=== PATIENT | male | born 2005 | race Caucasian/White ===

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

== ENCOUNTER 2024-12-11 22:38 | Emergency (ER) | payer OTHER, SELFPAY ==
--- NOTE | 2024-12-11 22:39 | XRR_ITS ---
PROCEDURE INFORMATION: Exam: XR Right Ankle Exam date and time: 12/11/2024 10:44 PM Age: 19 years old Clinical indication: Right; RT ankle pain/swelling post fall TECHNIQUE: Imaging protocol: Radiologic exam of the right ankle. Views: 3 or more views. COMPARISON: No relevant prior studies available. FINDINGS: Bones/joints: No acute fracture or dislocation. Mineralization is normal. Joint spacing and alignment are anatomic. Soft tissues: Unremarkable. XR/XR ankle RT min 3V* [id number] IMPRESSION: No acute findings.
[2024-12-11 22:45] VITALS: BP 126/84; PULSE 84; RESP 18; TEMP 36.7; O2SAT 96; BMI 27.1
--- NOTE | 2024-12-11 22:55 | W.ED.LOWEXIN ---
HPI - Extremity Injury (Lower) General: Chief Complaint: Extremity Injury, Lower Stated Complaint: right ankle injury Time Seen by Provider: 12/11/24 22:39 Source: patient Mode of arrival: wheelchair Limitations: no limitations History of Present Illness: Patient is a 19-year-old male presents to ED today for evaluation of right foot and ankle pain that he sustained earlier today after he was walking out the door and forgot about a small drop-off and accidentally rolled the foot/ankle. He states he has many previous ankle sprains involving that ankle. States last year he broke the foot in 3 different places but reportedly never had follow-up for this. MD complaint: ankle injury and foot injury Onset (ago): hour(s) Injury: Right: ankle and foot Place: home Severity: moderate Relieving factors: immobilization Exacerbating factors: weight bearing, movement and palpation Context: walking Associated symptoms: Reports inability to bear weight Other symptoms: none Related Data Previous Rx's ?Medication ?Instructions ?Recorded buspirone 7.5 mg tablet 7.5 mg PO BID mood disorder #60 11/19/24 tabs Allergies Allergy/AdvReac Type Severity Reaction Status Date / Time No Known Allergies Allergy Verified 12/11/24 22:52 Review of Systems Musc: Reports: extremity pain (R foot), extremity swelling (R foot), joint pain (R ankle) and joint swelling (R ankle); Denies: joint redness, joint warmth or joint stiffness Neuro: Reports: difficulty walking (due to R foot/ankle pain); Denies: numbness in extremities or sensory changes PFS ED PFSH: Social History Smoking and tobacco/nicotine status: current every day tobacco/nicotine user Alcohol intake: never Substance/Drug Use: never Physical Exam Const: COMMON NORMALS: no acute distress, average body habitus, no limitations, healthy appearing, alert and well nourished Extremity: COMMON NORMALS: capillary refill normal and no calf tenderness GENERAL: Yes normal exam except as noted RIGHT LOWER EXTREMITY: Yes foot & digits (edema to R ankle; tender both medial/lateral aspects; no dislocation) Right ankle: Yes neurovascular exam (normal) and Yes foot & digits (TTP dorsal medial foot; no deformity; mild edema) Right foot and digits: Yes neurovascular exam (normal) Neuro: COMMON NORMALS: moves all extremities, no focal motor deficits and no sensory deficits noted SENSORIUM/ORIENTATION: Yes alert Skin: TRAUMA: no lacerations or abrasions Course Vital Signs: Vital signs: Vital Signs Temperature 98.1 F 12/11/24 22:45 Pulse Rate 84 12/11/24 22:45 Respiratory Rate 18 12/11/24 22:45 Blood Pressure 126/84 12/11/24 22:45 Pulse Oximetry 96 12/11/24 22:45 Oxygen Delivery Me thod Room Air 12/11/24 22:45 MDM - Extremity Injury (Lower) Medical Decision Making I do not visualize any acute fractures on his foot/ankle films. Will LINDA wrap and give him crutches to help with ambulation. RICE therapy discussed. Recommend follow-up with primary care in 1 to 2 weeks if symptoms are not improving. Medical Records I reviewed the patient's medical records. XR interpretation done by ED provider, pending radiology final review Discharge Plan Discharge Patient Disposition: Home Clinical Impression: Strain of right ankle and foot Qualifiers: Encounter type: initial encounter Qualified Code(s): S96.911A - Strain of unspecified muscle and tendon at ankle and foot level, right foot, initial encounter Condition: Stable Prescriptions: No Action buspirone 7.5 mg tablet 7.5 mg PO BID Qty: 60 3RF Discharge Orders: Discharge ED (Routine); Ordered 12/11/24 Ordered By: Beverly Mendenhall Referrals: Antoine Bean FNP [Primary Care Provider] - Patient Instructions: Ankle Sprain (DC), Foot Sprain (ED), RICE Therapy Activity Restrictions/Additional Instructions: I do not visualize any acute fractures on your ankle or foot x-rays this evening. Our radiologist will over read all of our films and if there are any discrepancies, we will contact you. As we discussed, please follow-up with primary care in 1 to 2 weeks if symptoms are not improving. You may use your LINDA wrap and crutches over the next week to help with ambulation. Ice and elevate the extremity is much as possible to help with swelling. Print Language: Irish Coding Level of Care Code ED Research Greenhouse Supervisor for Florencio Kim
--- NOTE | 2024-12-11 23:00 | XRR_ITS ---
PROCEDURE INFORMATION: Exam: XR Right Foot Exam date and time: 12/11/2024 11:28 PM Age: 19 years old Clinical indication: Foot; Right; RT ankle pain/swelling post fall TECHNIQUE: Imaging protocol: Radiologic exam of the right foot. Views: 3 or more views. COMPARISON: CR (LOW EXM, ) 12/11/2024 10:44 PM FINDINGS: Bones/joints: No acute fracture or dislocation. Mineralization is normal. Joint spacing and alignment are anatomic. Soft tissues: Unremarkable. XR/XR foot RT min 3V* [id number] IMPRESSION: No acute findings.
== END 2024-12-12 00:10 | disposition home or self-care (01) ==
PROVIDERS: Emergency Provider Physician Assistant; PCP Nurse Practitioner Family
DX: S96.911A Strain of unspecified muscle and tendon at ankle and foot level, right foot, initial encounter (principal); Z72.0 Tobacco use; X58.XXXA Exposure to other specified factors, initial encounter
CPT/HCPCS: 73610; 73630; 99283; E0114

== ENCOUNTER 2025-07-02 21:44 | Emergency (ER) | payer OTHER, MEDICAID, SELFPAY ==
--- OUTSIDE RECORDS SUMMARY | 2025-07-02 15:00 | XMS_ITS | Encounter Summary ---
Author Organization [facility] Address [address] [place] [address] Care Team Providers Care Stewarding Supervisor Name Role Phone Blake Champion MD Primary Care Provider [phone] Reason for Visit * Reason Comments Weakness Fever Vomiting Encounter Details Date Type Department Care Team (Late st Contact Info) Description 07/02/2025 3:00 PM CDT Office Visit [facility] [address] [phone] Beverly Oliveros, [address] [address] Vomiting, unspecified vomiting type, unspecified whether nausea present (Primary Dx); Fever, unspecified fever cause Social History Tobacco Use Types Packs/Day Years Used Date Smoking Tobacco: Every Day Cigarettes Smokeless Tobacco: Former Chew Alcohol Use Standard Drinks/Week Comments Not Currently 0 (1 standard drink = 0.6 oz pur e alcohol) socially Feeling Safe Answer Date Recorded Are you in a relationship wi th someone who hurts you emotionally and/or physically? 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 Gender Identity Not on file Sexual Orientation Not on file documented as of this encounter Last Filed Vital Signs Vital Sign Reading Time Taken Comments Blood Pressure 138/86 07/02/2025 2:49 PM CDT Pulse 87 07/02/2025 2:49 PM CDT Temperature 37.2 C (99 F) 07/02/2025 2:49 PM CDT Respiratory Rate 16 07/02/2025 2:49 PM CDT Oxygen Saturation 99% 07/02/2025 2:49 PM CDT Inhaled Oxygen Concentration - - Weight 101.4 kg (223 lb 9.6 oz) 07/02/2025 2:49 PM CDT Height 182.9 cm (6') 07/02/2025 2:49 PM CDT Body Mass Index 30.33 07/02/2025 2:49 PM CDT documented in this encounter Progress Notes * Beverly Oliveros, VISCOSITY TESTER - 07/02/2025 3:35 PM CDT [facility] 07/02/2025 Subjective: Aaron Saha is a 20 y.o. male who comes today for evaluation of Weakness, Fever, and Vomiting . History of Present Illness The patient is a 20-year-old male who presents with fevers, vomiting, and exposure to strep. He has been experiencing vomiting since yesterday, accompanied by a fever of 102.1 degrees. His 2-year-old house member was diagnosed with strep throat yesterday, but he himself does not exhibit symptoms of strep throat. Instead, he presents with gastrointestinal symptoms such as vomiting and diarrhea, which started today. He also reports a headache and general weakness. He has no sore throat, cough, or congestion. He took Tylenol or ibuprofen at 2:07 PM today, which reduced his temperature to 99 degrees. He took Pepto-Bismol yesterday. Review of Systems Constitutional: Negative for chills, fever and malaise/fatigue. HENT: Negative for congestion, ear pain and sore throat. Eyes: Negative for blurred vision. Respiratory: Negative for cough and shortness of breath. Cardiovascular: Negative for chest pain. Gastrointestinal: Positive for diarrhea, nausea and vomiting. Negative for abdominal pain and constipation. Genitourinary: Negative for dysuria and urgency. Musculoskeletal: Negative for joint pain and myalgias. Neurological: Negative for dizziness and headaches. All other systems reviewed and are negative. Objective: Vitals: 07/02/25 1449 Temp: 99 ??F (37.2 ??C) Pulse: 87 BP: 138/86 Resp: 16 SpO2: 99% Physical Exam Constitutional: General: He is not in acute distress. Appearance: Normal appearance. He is not ill-appearing or toxic-appearing. HENT: Head: Normocephalic and atraumatic. Right Ear: Tympanic membrane normal. Left Ear: Tympanic membrane normal. Nose: Nose normal. Mouth/Throat: Mouth: Mucous membranes are moist. Eyes: Extraocular Movements: Extraocular movements intact. Pupils: Pupils are equal, round, and reactive to light. Cardiovascular: Rate and Rhythm: Normal rate and regular rhythm. Pulses: Normal pulses. Heart sounds: Normal heart sounds. Pulmonary: Effort: Pulmonary effort is normal. No respiratory distress. Breath sounds: Normal breath sounds. No decreased air movement. No decreased breath sounds, wheezing, rhonchi or rales. Abdominal: General: Abdomen is flat. Palpations: Abdomen is soft. Tenderness: There is no abdominal tenderness. There is no guarding. Musculoskeletal: General: Normal range of motion. Cervical back: Normal range of motion and neck supple. Skin: General: Skin is warm and dry. Neurological: General: No focal deficit present. Mental Status: He is alert and oriented to person, place, and time. Psychiatric: Mood and Affect: Mood normal. Behavior: Behavior normal. Past medical history, surgical history and social history reviewed. Past Medical History: Diagnosis Date Alternating esotropia Procedures Assessment/Plan: ICD-10-CM ICD-9-CM 1. Vomiting, unspecified vomiting type, unspecified whether nausea present R11.10 787.03 POC INFLUENZA A/B AND COVID-19 ANTIGENS 2. Fever, unspecified fever cause R50.9 780.60 POC RAPID STREP A ANTIGEN Assessment & Plan 1. Gastroenteritis: - Symptoms of vomiting and diarrhea started yesterday and today, respectively, suggesting a viral gastritis or stomach bug. The patient is contagious until fever-free for 24 hours and without vomiting or diarrhea for 24 hours. - The fever is currently at 99. No signs of strep throat were observed and a rapid swab was negative (family member swabbed positive yesterday). - A BRAT diet (bananas, rice, applesauce, toast) is recommended, along with small sips of water every 15 minutes to stay hydrated. If symptoms persist beyond 3 to 5 days, a stool culture will be conducted. - A prescription for Zofran will be sent to the pharmacy for nausea management. 2. Fever: - The fever started yesterday and has been managed with Tylenol or ibuprofen, bringing it down to 99. 3. Headache: - The patient reports a headache associated with the current illness. - [id number] pain relievers like Tylenol or ibuprofen can be used as needed. 4. Weakness: - The patient feels weak, likely due to the combination of fever, vomiting, and diarrhea. - Rest and hydration are advised. Beverly KEATING- This note was automatically generated by a Generative AI technology ([employer]), reviewed, edited, and finalized by Beverly Oliverso. The author of this note, patient (or authorized solar sales representative), and all other persons present consent to the audio recording of this visit for charting documentation purposes. documented in this encounter Plan of Treatment Scheduled Orders Name Type Priority Associated Diagnoses Orde r Schedule POC INFLUENZA A/B AND COVID-19 ANTIGENS Point of Care Testing Routine Vomiting, unspecified vomiting type, unspecified whether nausea present Ordered: 07/02/2025 POC RAPID STREP A ANTIGEN Point of Care Testing Routine Fever, unspecified fever cause Ordered: 07/02/2025 documented as of this encounter Visit Diagnoses Diagnosis Vomiting, unspecified vomiting type, unspecified whether nausea present- Primary Fever, unspecified fever cause documented in this encounter Care Teams Stewarding Supervisor Relationship Specialty Start Date End Date Blake Champion MD [address] [phone] PCP - General Family Practice 03/08/25 documented as of this encounter
[2025-07-02 21:48] VITALS: BP 147/86; PULSE 109; RESP 14; TEMP 37.6; O2SAT 100; BMI 27.1
--- OUTSIDE RECORDS SUMMARY | 2025-07-02 21:51 | XMS_ITS | Patient Health Record ---
Author Organization [facility] Address [address] [place], [place] [id number] Care Team Providers Care Division Manager Name Role Phone Non 1st Choice Provider, Provider Primary Care Anna ugarte Unavailable [address] Reason For Referral No Information Immunizations Vaccine Route Administration Date Status Comme nts Coronavirus Pfizer #1 IM Intramuscular 02/10/2021 Administ ered Plan Of Treatment No Information
--- OUTSIDE RECORDS SUMMARY | 2025-07-02 21:52 | XMS_ITS | Clinical Summary ---
Author Organization [facility] Address [address] [place] [address] Care Team Providers Care Corporate General Manager Name Role Phone Unavailable Primary Care Provider Unavailabl e Allergies No known active allergies Active Problems Problem Noted Date Diagnosed Date Alternating esotropia Immunizations Immunization Administration Dates Next Due (M-M-R II/PRIORIX)(12 MO UP) MEASLES, MUMPS AND RUBELLA VIRUS VACCINE, 0.5 ML IM/SUBCUT 02/25/2008 (VARIVAX)(12 MOS UP)VARICELL A VIRUS VACCINE (PF) 0.5 ML, SUB CUT 04/26/2008 Dt Dtp Dtap Vaccine 02/25/2008 IPV/OPV 02/25/2008 Social History Tobacco Use Types Packs/Day Years Used Date Smoking Tobacco: Never Assessed Sex and Gender Information Value Date Recorded Sex Assigned at Not on file 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
--- OUTSIDE RECORDS SUMMARY | 2025-07-02 21:52 | XMS_ITS | Clinical Summary ---
Author Organization [facility] Address [address] [facility] Attn: Epic Prelude ADT [place] [address] Care Team Providers Care Land Examiner Name Role Phone Blake Champion MD Primary Care Provider [phone] Allergies No known active allergies Medications tiZANidine (ZANAFLEX) 2 mg TabletIndication s:Acute right-sided low back pain with right-sided sciatica Take 1 Tablet (2 mg) by mouth every 8 hours as needed for Spasm. 60 Tablet Active Additional Information Patient not taking.Reported on 07/02/2025 sertraline (Zoloft) 25 mg tabletIndication s:Mood disorder Take 1 Tablet (25 mg) by mouth daily. 30 Tablet 1 Active Additional Information Patient not taking.Reported on 07/02/2025 ondansetron (ZOFRAN ODT) 8 mg Tablet, Rapid DissolveIndicati ons:Vomiting, unspecified vomiting type, unspecified whether nausea present Place 1 Tablet (8 mg) under tongue every 8 hours as needed for Nausea/Emesis or Nausea. Dissolve 1 tablet on top of tongue then swallow with saliva every 8 hours as needed for nausea or vomiting 21 Tablet Active Active Problems Problem Noted Date Diagnosed Date Alternating esotropia Encounters Date Type Department Care Team Description 07/02/2025 3:00 PM CDT Office Visit [facility] [place] [address] [facility] [address] [place] [phone] Beverly Oliveros FNP Vomiting, unspecified vomiting type, unspecified whether nausea present (Primary Dx); Fever, unspecified fever cause 04/21/2025 External Device Data STL ABSTRACTION Provider, Abstract 04/06/2025 External Device Data STL ABSTRACTION Provider, Abstract 04/06/2025 External Device Data STL ABSTRACTION Provider, Abstract from Last 3 Months Immunizations Immunization Administration Dates Next Due (HAVRIX/VAQTA)(12 MO-18 YRS) HEPATITIS A VACCINE 0.5 ML PED/ADOL 2 DOSE, IM 11/13/2016,04/02/2016 (INFANRIX)(6 WKS-6 YRS) DIPT HERIA, TETANUS TOXOIDS, AND ACCELLULAR PERTUSSIS VACCINE (DTAP), 0.5 ML IM 02/25/2008,04/04/2005,08/02/2004,04/05,2003 (IPOL)(6 WKS AND UP) POLIOVI FERNANDEZ VACCINE, INACTIVATED (IPV), 3 DOSE, SUBCUT OR IM 02/25/2008,02/25/2008,08/02/2004,04/05,2003 (M-M-R II/PRIORIX)(12 MO UP) MEASLES, MUMPS AND RUBELLA VIRUS VACCINE, 0.5 ML IM/SUBCUT 02/25/2008,04/05/2004 (MENACTRA)(9 MO-55 YR) MENIN GOCOCCAL POLYSACCHARIDE A, C, Y AND W-135 DIPTHERIA TOXOID CONJUGATE VACCINE, (PF), 0.5ML, IM 05/08/2019,04/02/2016 (PEDIARIX)(6 WKS-6 YRS) DIPT HERIA, TETANUS TOXOIDS, ACELLULAR PERTUSSIS, HEPATITIS B, AND INACTIVATED POLIOVIRUS VACCINE ([id number]), 0.5ML, IM 08/02/2004,04/05/2004,2003 (PFIZER)(12 YR UP) COVID-19 VACCINE - EMERGENCY USE AUTHORIZATION, MRNA, [id number](PF) 30 MCG/0.3 ML IM SUSP 02/10/2021,01/20/2021 (PREVNAR 13)(6 WKS UP) PNEUM OCOCCAL CONJUGATE (PCV13) 0.5 ML, IM 08/02/2004,04/05/2004,2003 (VARIVAX)(12 MOS UP)VARICELL A VIRUS VACCINE (PF) 0.5 ML, SUB CUT 04/02/2016,04/26/2008 Adacel Vaccine > 7 Yo IM 04/02/2016 DTaP Hib Combined Vaccine IM 04/04/2005 Dt Dtp Dtap Vaccine 02/25/2008 HIB, Unspecified Formulation 08/02/2004,04/05/20 04,2003 HPV 9 Vaccine 3-dose PF IM VFC 10/02/2016,2015,04/02/2016 Hepatitis B Vaccine 08/02/2004,04/05/2004,2003 INFLUENZA VACCINE QUADRIVALE NT 3 YR UP PF IM 06/20/2020,06/17/2019,06/20/2018,06/04 IPV/OPV 02/25/2008 Influenza Seasonal Unspecifi ed Formulation IM 05/08/2019(Deferred: Patient/Guardian Refused) Pneumococcal 7-valent conjug ate vaccine IM 08/02/2004,04/05/2004,2003 Social History Tobacco Use Types Packs/Day Years Used Date Smoking Tobacco: Every Day Cigarettes Smokeless Tobacco: Former Chew Tobacco Cessation:Ready to Q uit: No; Counseling Given: Yes Alcohol Use Standard Drinks/Week Comments Not Currently 0 (1 standard drink = 0.6 oz pur e alcohol) socially Feeling Safe Answer Date Recorded Are you in a relationship wi th someone who hurts you emotionally and/or physically? 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 Gender Identity Not on file Sexual Orientation Not on file Last Filed Vital Signs Vital Sign Reading [...] Mass Index 30.33 07/02/2025 2:49 PM CDT Plan of Treatment Health Maintenance Due Date Last Done Comments Preventative Visit- Commercial 09/16/2024 INFLUENZA VACCINE (#1) 2025 , 06/17/2019, 06/20/2018, Additional history exists COVID-19 Vaccine (3 - 2024-2 6 season) 2025 02/10/2021, 01/20/2021 DTAP/TDAP/TD VACCINES (7 - T d or Tdap) 04/02/2026 04/02/2016, 02/25/2008, 02/25/2008, Additional history exists HEPATITIS B VACCINES Completed 08/02/2004, 08/02/2004, 04/05/2004, Additional history exists HPV VACCINES Completed 10/02/2016, 05/17, 04/02/2016 Insurance [facility] [id number] Care Teams Land Examiner Relationship Specialty Start Date End Date Blake Champion MD [address] [phone] PCP - General Family Practice 03/08/25
[2025-07-02 22:43] LABS: Respiratory Syncytial Virus Ce NEGATIVE (Negative); SARS-CoV-2 PCR NEGATIVE (Negative)
[2025-07-02 23:39] LABS: Hematocrit 47.1 % (37-53); Hemoglobin 15.40 g/dL (11.27-16.99); Mean Corpuscular HGB Conc 32.7 g/dL (30-55); Mean Corpuscular Hemoglobin 28.5 pg (27-33); Mean Corpuscular Volume 87.2 fl (82-101); Nucleated Red Blood Cells % 0 %; Platelet Count 166 10^3/cmm (157-399); Red Blood Count 5.40 10^6/uL (3.85-5.65); White Blood Count 6.07 10^3/uL (3.29-11.43)
[2025-07-03 00:39] LABS: Alanine Aminotransferase 21 U/L (0-41); Albumin Level 4.8 g/dL (3.5-5.2); Alkaline Phosphatase 105 U/L (40-130); Anion Gap 16.7 (5-19); Aspartate Amino Transferase 20 U/L (0-40); Blood Urea Nitrogen 10 mg/dL (6-20); Calcium 9.8 mg/dL (8.5-10.5); Carbon Dioxide 27 mmol/L (22-29); Chloride 98 mmol/L (98-107); Creatinine Clr Calc Pharmacy 113.1478; Globulin 3.3 g/dL (1.3-4.6); Glucose 88 mg/dL (65-115); Lipase 26 U/L (13-60); Osmolality Calculated 284 mOsm/kg (285-295); Potassium 3.7 mmol/L (3.5-5.1); Sodium 138 mmol/L (136-145); Total Protein 8.1 g/dL (6.6-8.7)
--- NOTE | 2025-07-03 00:54 | W.ED.GENADLT ---
HPI - General Adult General: Chief complaint: General Medical Stated complaint: Vomiting,shaking,fever Time Seen by Provider: 07/03/25 00:43 Source: patient Mode of arrival: ambulatory Limitations: no limitations History of Present Illness: 20-year-old male states that he has been having cough congestion sore throat body chills and aches over the last 2 days. He states that he has had some abdominal cramping as well. States he was seen recently and had a negative COVID and flu. He denies any severe abdominal pain he denies any headache or neck pain. Related Data Previous Rx's ?Medication ?Instructions ?Recorded buspirone 7.5 mg tablet 7.5 mg PO BID mood disorder #60 11/19/24 tabs ondansetron 4 mg disintegrating 4 mg PO Q6H PRN nausea and 07/03/25 tablet vomiting #14 tabs Allergies Allergy/AdvReac Type Severity Reaction Status Date / Time No Known Allergies Allergy Verified 07/02/25 21:53 Review of Systems Const: Reports: fever(s) and chills [facility] ED PFSH: Social History Smoking and tobacco/nicotine status: current every day tobacco/nicotine user Alcohol intake: never Substance/Drug Use: never Physical Exam Const: COMMON NORMALS: no acute distress, patient oriented x3 and healthy appearing HENMT: COMMON NORMALS: normocephalic and atraumatic HEAD & SCALP: normocephalic and atraumatic THROAT: posterior oropharynx normal Eye: COMMON NORMALS: Equal, round and reactive pupils present and EOMs intact bilaterally PUPIL: Yes Equal, round and reactive pupils present Neck/C-Spine: COMMON NORMALS: full ROM, supple and no meningeal signs Chest: COMMONS NORMALS: normal inspection of the chest Resp: COMMON NORMALS: normal respiratory effort, No retractions, No use of accessory muscles and clear to auscultation bilaterally AUSCULTATION: clear to auscultation bilaterally Cardio: COMMON NORMALS: regular rate, regular rhythm and No murmurs present (Cardio) RATE: regular rate RHYTHM: regular rhythm GI: COMMON NORMALS: Normal to inspection, nondistended, normoactive bowel sounds present, Soft to palpation, non-tender and no masses PALPATION: Yes Soft to palpation Extremity: COMMON NORMALS: normal to inspection and full ROM Neuro: COMMON NORMALS: patient oriented x3, moves all extremities and no focal motor deficits MENINGEAL SIGNS: Yes no meningeal signs Psych: COMMON NORMALS: mental status grossly normal, Normal thought process present and cooperative THOUGHT PROCESS: Normal thought process present Skin: COMMON NORMALS: no rashes or lesions noted and no wounds GENERAL SKIN EXAM: no rashes or lesions noted Course Vital Signs: Vital signs: Vital Signs Temperature 99.6 F 07/02/25 21:48 Pulse Rate 109 H 07/02/25 21:48 Respiratory Rate 14 07/02/25 21:48 Blood Pressure 147/86 07/02/25 21:48 Pulse Oximetry 100 07/02/25 21:48 Oxygen Delivery Me thod Room Air 07/02/25 21:48 MDM - General Adult Medical Decision Making Patient presents with vomiting and chills cough body aches this likely a viral syndrome. Patient is well-appearing here with normal exam he has no signs of strep throat. Patient is no signs of pneumonia here his white count here is normal. Did offer him IV fluids along with Zofran and he states that he does not want to be stuck with a needle he just wants Zofran at this time. I feel he stable for discharge we will prescribe Zofran for home he is to follow-up with PCP and return if worsening he understands agrees to plan Medical Records I reviewed the patient's medical records. Lab Data I reviewed the patient's lab results. 07/02/25 23:33 07/02/25 23:33 Laboratory Results WBC 6.07 10^3/uL (3.29-11.43) 07/02/25 23:33 RBC 5.40 10^6/uL (3.85-5.65) 07/02/25 23:33 Hgb 15.40 g/dL (11.27-16.99) 07/02/25 23:33 Hct 47.1 % (37-53) 07/02/25 23:33 MCV 87.2 fl (82-101) 07/02/25 23:33 MCH 28.5 pg (27-33) 07/02/25 23: MCHC 32.7 g/dL (30-55) 07/02/25 23:33 RDW 12.9 % (12.1-15.1) 07/02/25 23:33 Plt Count 166 10^3/cmm (157-399) 07/02/25 23:33 MPV 10.3 fL (7.4-10.4) 07/02/25 23:33 Neut % (Auto) 71.6 % 07/02/25 23: Lymph % (Auto) 18.8 % 07/02/25 23: Swain % (Auto) 9.1 % 07/02/25 23: Eos % (Auto) 0.0 % 07/02/25 23: Baso % (Auto) 0.3 % 07/02/25 23: Neut # (Auto) 4.35 10^3/uL (1.8-7.7) 07/02/25 23: Lymph # (Auto) 1.1 10^3/uL (0.8-4.8) 07/02/25 23: Swain # (Auto) 0.6 10^3/uL (0.2-0.9) 07/02/25 23: Eos # (Auto) 0.0 10^3/uL (0.0-0.8) 07/02/25 23: Baso # (Auto) 0.0 10^3/uL (0.0-0.1) 07/02/25 23: Nucleated RBC % (auto) 0 % 07/02/25 23: Nucleated RBCs # 0.0 /100WBC 07/02/25 23:33 Sodium 138 mmol/L (136-145) 07/02/25 23:33 Potassium 3.7 mmol/L (3.5-5.1) 07/02/25 23:33 Chloride 98 mmol/L (98-107) 07/02/25 23:33 Carbon Dioxide 27 mmol/L (22-29) 07/02/25 23:33 Anion Gap 16.7 (5-19) 07/02/25 23:33 BUN 10 mg/dL (6-20) 07/02/25 23: Creatinine 1.2 mg/dL (0.7-1.2) 07/02/25 23:33 GFR Calculation 75.7 mL/min (90-130) L 07/02/25 23:33 Glucose 88 mg/dL (65-115) 07/02/25 23:33 Calculated Osmolality 284 mOsm/kg (285-295) L 07/02/25 23:33 Calcium 9.8 mg/dL (8.5-10.5) 07/02/25 23:33 Total Bilirubin 0.3 mg/dL (0.15-1.2) 07/02/25 23:33 AST 20 U/L (0-40) 07/02/25 23:33 ALT 21 U/L (0-41) 07/02/25 23:33 Alkaline Phosphatase 105 U/L (40-130) 07/02/25 23:33 Total Protein 8.1 g/dL (6.6-8.7) 07/02/25 23:33 Albumin 4.8 g/dL (3.5-5.2) 07/02/25 23:33 Globulin 3.3 g/dL (1.3-4.6) 07/02/25 23:33 Lipase 26 U/L (13-60) 07/02/25 23:33 Influenza A (PCR) Negative (Negative) 07/02/25 21:56 Influenza Type B (PCR) Negative (Negative) 07/02/25 21:56 RSV (PCR) Negative (Negative) 07/02/25 21:56 SARS-CoV-2 (PCR) Negative (Negative) 07/02/25 21:56 No radiology studies performed this visit Discharge Plan Discharge Patient Disposition: Home Clinical Impression: Vomiting, Acute viral syndrome Condition: Stable Prescriptions: New ondansetron 4 mg tablet,disintegrating 4 mg PO Q6H PRN (Reason: nausea and vomiting) Qty: 14 0RF No Action buspirone 7.5 mg tablet 7.5 mg PO BID Qty: 60 3RF Discharge Orders: Discharge ED (Routine); Ordered 07/03/25 Ordered By: Trevin Powell Referrals: Antoine Bean FNP [Primary Care Provider, Family Practice] Discharge Diet: Advance as tolerated Discharge Activity: Resume usual activity Patient Instructions: Acute Nausea and Vomiting (ED) Print Language: Faroese Coding Level of Care Code ED Senior Instructor for Florencio Kim
[2025-07-03] MEDS: ondansetron hcl ODT 4 mg Tab PO (01:09)
[2025-07-03] MEDS: HYDROcodone-acetaminophen 5-325 mg Tablet 1 TAB PO (01:09)
[2025-07-03 01:26] VITALS: BP 130/86; PULSE 86; O2SAT 98
== END 2025-07-03 01:27 | disposition home or self-care (01) ==
PROVIDERS: Emergency Provider Emergency Medicine; PCP Nurse Practitioner Family
DX: R11.10 Vomiting, unspecified (principal); B34.9 Viral infection, unspecified; Z11.52 Encounter for screening for COVID-19; Z72.0 Tobacco use
CPT/HCPCS: 36415; 80053; 83690; 85025; 87637; 99283; J9999; Q0162